=== PATIENT | female | born 1970 | race African-American/Black ===

== ENCOUNTER 2016-08-16 08:45 | Emergency (ER) | payer OTHER ==
--- NOTE | 2016-08-16 11:16 | ER Document Report ---
ED General - General Chief Complaint: Sinus Pain Stated Complaint: HEAD PAIN Mode of Arrival: Ambulatory Information source: Patient Notes: 45 y/o F presents to the emergency department complaining of sinus congestion and pressure, headache, sore throat and body ache. Reports aches to bilateral upper chest and bilateral upper back worse with cough and deep breathing. Patient reports symptoms started approximately 2 days ago. Denies chest pain, fever, shortness of breath, nausea or vomiting. Reports history of for sinusitis with course of Augmentin approximately 2 weeks ago. TRAVEL OUTSIDE OF THE [place] IN LAST 30 DAYS: No - HPI Onset/Duration: Persistent Quality of pain: Achy Severity: Mild Pain Level: 2 Associated symptoms: Body/muscle aches, Headache, Rhinnorhea, Sore throat Exacerbated by: Deep breathing Similar symptoms previously: Yes Recently seen / treated by doctor: No - Related Data Allergies/Adverse Reactions: No Known Allergies Allergy (Verified 08/16/16 08:45) Past Medical History - General Information source: Patient - Social History Smoking Status: Never Smoker Chew tobacco use (# tins/day): No Frequency of alcohol use: None Drug Abuse: None Lives with: Family Family History: Reviewed & Not Pertinent Patient has suicidal ideation: No Patient has homicidal ideation: No - Past Medical History Cardiac Medical History: Reports: Hx Hypertension - Used to be on medication, it has been stopped. Neurological Medical History: Reports: Hx Seizures - History is suggestive of a seizure disorder, unconfirmed on testing. Renal/ Medical History: Denies: Hx Peritoneal Dialysis Musculoskeltal Medical History: Reports Hx Arthritis - Foot. Patient takes Mobic. Past Surgical History: Reports: Hx Hysterectomy - Immunizations Hx Diphtheria, Pertussis, Tetanus Vaccination: Yes Review of Systems - Review of Systems Constitutional: See HPI EENT: See HPI Cardiovascular: No symptoms reported Respiratory: See HPI Gastrointestinal: No symptoms reported Genitourinary: No symptoms reported Female Genitourinary: No symptoms reported Musculoskeletal: No symptoms reported Skin: No symptoms reported Hematologic/Lymphatic: No symptoms reported Neurological/Psychological: No symptoms reported -: Yes All other systems reviewed and negative Physical Exam - Vital signs Vitals: Temp Pulse Resp BP Pulse Ox 97.5 F 88 16 133/94 H 97 08/16/16 08:48 08/16/16 08:48 08/16/16 08:48 08/16/16 08:48 08/16/16 08:48 Interpretation: Normal - General General appearance: Appears well, Alert In distress: None - HEENT Head: Normocephalic, Atraumatic Eyes: Normal Conjunctiva: Normal Eyelashes: Normal Pupils: PERRL Ears: Normal External canal: Normal Sinus: Redness, Swelling. No: Tenderness Nasal: Clear rhinorrhea. No: Purulent discharge Mouth/Lips: Normal Mucous membranes: Normal, Moist Pharynx: Normal. No: Blood in hypopharynx, Erythema, Exudate, Peritonsillar abscess, Post nasal drainage, Retropharyngeal abscess, Tonsillar hypertrophy, Uvular edema, Potential airway comprom., Other Neck: Normal. No: Anterior cervical chain, Posterior cervical chain, Lymphadenopathy, Meningismus, Subcutaneous emphysema - Respiratory Respiratory status: No respiratory distress Chest status: Nontender Breath sounds: Normal - CTAB Chest palpation: Normal - Cardiovascular Rhythm: Regular Heart sounds: Normal auscultation Murmur: No Pulses: Normal: Radial Normal capillary refill: Yes - Abdominal Inspection: Normal Distension: No distension Bowel sounds: Normal Tenderness: Nontender Organomegaly: No organomegaly - Back Back: Normal, Nontender - Extremities General upper extremity: Normal inspection, Nontender, Normal color, Normal ROM , Normal temperature General lower extremity: Normal inspection, Nontender, Normal color, Normal ROM , Normal temperature, Normal weight bearing - Neurological Neuro grossly intact: Yes Cognition: Normal Orientation: AAOx4 Jamil Coma Scale Eye Opening: Spontaneous [place] Coma Scale Verbal: Oriented Jamil Coma Scale Motor: Obeys Commands [place] Coma Scale Total: 15 Speech: Normal Motor strength normal: LUE, RUE, LLE, RLE Sensory: Normal - Psychological Associated symptoms: Normal affect, Normal mood - Skin Skin Temperature: Warm Skin Moisture: Dry Skin Color: Normal Skin Turgor: Elastic Course - Re-evaluation Re-evalutation: 08/16/16 11:19 Patient hemodynamically stable, in no distress, afebrile. Rapid strep and influenza negative. Will treat symptomatically for a likely viral upper respiratory infection at this time with no suggestion of emergent infectious, inflammatory, or vascular etiology at this time. Patient appears stable for discharge and agrees with home care, follow-up with PCP, ED return precautions. - Vital Signs Vital signs: Temp Pulse Resp BP Pulse Ox 97.5 F 77 20 122/89 H 100 08/16/16 11:33 08/16/16 11:33 08/16/16 11:33 08/16/16 11:33 08/16/16 11:33 Discharge - Discharge Clinical Impression: URI (upper respiratory infection) Qualifiers: URI type: unspecified URI Qualified Code(s): J06.9 - Acute upper respiratory infection, unspecified Condition: Stable Disposition: HOME, SELF-CARE Instructions: Viral Syndrome ([facility]), Upper Respiratory Illness ([facility]), Acetaminophen, Use of [id number] Ibuprofen ([facility]), Decongestant Medication ([facility]), Cough Suppressant & Expectorant Medications Additional Instructions: Home self care: -Rest, hydration (6-10 glasses/day) -Steamy shower -Apply warm facial packs -Nasal saline irrigation lavage -Sleep with head elevated -Avoid cigarette smoke -Use of humidifier/vaporizer -Balanced nutrition Follow-up with your primary care provider tomorrow as discussed. Return to the emergency department for any worsening symptoms or concerns. Prescriptions: Guaifenesin/Dm/Pseudoephedrine [Guai 800/Pse 60/Dm 30 Tablet] 1 tab PO Q12HP PRN #6 tab.sr.12h PRN Reason: Mometasone Furoate [Nasonex] 1 spray NS Q12HP PRN #1 spray.pump PRN Reason: Forms: Elevated Blood Pressure Referrals: CHACHO CHOWDHURY MD [Primary Care Provider] - Follow up tomorrow
[2016-08-16 11:34] VITALS: BP 122/89
== END 2016-08-16 11:33 | disposition home or self-care (01) ==
LOC: ER 08:45
DX: J06.9 Acute upper respiratory infection, unspecified (principal); R09.81 Nasal congestion; R51 Headache; J02.9 Acute pharyngitis, unspecified; R07.9 Chest pain, unspecified; M54.89 Other dorsalgia; M79.1 Myalgia; J34.89 Other specified disorders of nose and nasal sinuses; I10 Essential (primary) hypertension
CPT/HCPCS: 87070; 87804; 87880; 99283

== ENCOUNTER 2017-01-30 00:27 | Emergency (ER) | payer OTHER ==
[2017-01-30 00:35] VITALS: BP 147/91
[2017-01-30] MEDS ORDERED: PENICILLIN V POTASSIUM 500 MG TABLET PO ONE (01:20)
--- NOTE | 2017-01-30 01:22 | ER Document Report ---
ED General - General Chief Complaint: Toothache Stated Complaint: TOOTACHE Time Seen by Provider: 01/30/17 00:52 Notes: Patient is a 46-year-old female who presents with 24 hours of pain to her left lower jaw. Patient states that she has been told that her posterior molar is infected by a dentist in the past and told that she did have the tooth extracted. However, she states it has not caused her any problems for approximately 1 year so she has not addressed this issue. States last 24 hours she has developed a severe, constant, throbbing pain to the area but has moderately improved after she took ibuprofen today. Nothing worsens the pain. She denies any difficulty swallowing or breathing. No fever or constitutional symptoms. She denies any significant facial swelling. She denies a history of similar symptoms in the past. She tried to see her dentist today but they were closed. TRAVEL OUTSIDE OF THE [place] IN LAST 30 DAYS: No - Related Data Allergies/Adverse Reactions: No Known Allergies Allergy (Verified 08/16/16 08:45) Past Medical History - General Information source: Patient - Social History Smoking Status: Never Smoker Frequency of alcohol use: None Drug Abuse: None Lives with: Family Family History: Reviewed & Not Pertinent Patient has suicidal ideation: No Patient has homicidal ideation: No - Past Medical History Cardiac Medical History: Reports: Hx Hypertension - Used to be on medication, it has been stopped. Neurological Medical History: Reports: Hx Seizures - History is suggestive of a seizure disorder, unconfirmed on testing. Renal/ Medical History: Denies: Hx Peritoneal Dialysis Musculoskeltal Medical History: Reports Hx Arthritis - Foot. Patient takes Mobic. Past Surgical History: Reports: Hx Hysterectomy - Immunizations Hx Diphtheria, Pertussis, Tetanus Vaccination: Yes Review of Systems - Review of Systems Notes: Constitutional: Negative for fever. HENT: Positive for dental pain Eyes: Negative for visual changes. Cardiovascular: Negative for chest pain. Respiratory: Negative for shortness of breath. Gastrointestinal: Negative for abdominal pain, vomiting or diarrhea. Genitourinary: Negative for dysuria. Musculoskeletal: Negative for back pain. Skin: Negative for rash. Neurological: Negative for headaches, weakness or numbness. 10 point ROS negative except as marked above and in HPI. Physical Exam - Vital signs Vitals: Temp Pulse Resp BP Pulse Ox 98.8 F 88 14 147/91 H 99 01/30/17 00:32 01/30/17 00:32 01/30/17 00:32 01/30/17 00:32 01/30/17 00:32 Interpretation: Hypertensive Notes: PHYSICAL EXAMINATION: GENERAL: Well-appearing, well-nourished and in no acute distress. HEAD: Atraumatic, normocephalic. EYES: sclera anicteric, conjunctiva are normal. ENT: Moist mucous membranes. Diffusely poor dentition, the left most posterior lower molar appears to have a large dental caries without any evidence of a periapical abscess. There is left submandibular lymphadenopathy but no appreciable facial swelling. Oropharynx is widely patent. NECK: Normal range of motion LUNGS: Normal work of breathing HEART: 2+ radial pulses bilaterally EXTREMITIES: no pitting or edema. No cyanosis. NEUROLOGICAL: No focal neurological deficits. Moves all extremities spontaneously and on command. PSYCH: Normal mood, normal affect. SKIN: Warm, Dry, normal turgor, no rashes or lesions noted. Course - Re-evaluation Re-evalutation: 01/30/17 01:20 Presentation is most consistent with likely an infected tooth. Airway is patent. Vitals within normal limits. Patient is able swallow without any difficulty. There is no significant facial swelling. Patient will be started on antibiotics and a limited number of pain medications. I've instructed to follow-up with dentistry as earliest ability for definitive management. Return precautions and follow-up recommendations have been discussed at length. - Vital Signs Vital signs: Temp Pulse Resp BP Pulse Ox 98.8 F 88 14 147/91 H 99 01/30/17 00:33 01/30/17 00:33 01/30/17 00:33 01/30/17 00:33 01/30/17 00:33 Discharge - Discharge Clinical Impression: Dental caries, Pain, dental Condition: Good Disposition: HOME, SELF-CARE Additional Instructions: You have been seen for dental pain. It is very important that you follow-up with a dentist for definitive care. Please return if you develop fever greater than 101, swelling in your face, vomiting, difficulty breathing or swallowing, or any other symptoms that are concerning to you. For pain you should take ibuprofen 600 mg every 6 hours as needed. Prescriptions: Penicillin V Potassium [Penicillin Vk 500 mg Tablet] 500 mg PO BID #20 tablet
== END 2017-01-30 01:30 | disposition home or self-care (01) ==
LOC: ER 00:27
DX: K02.9 Dental caries, unspecified (principal); K08.89 Other specified disorders of teeth and supporting structures; R68.84 Jaw pain
CPT/HCPCS: 99282

== ENCOUNTER 2017-09-08 09:07 | Emergency (ER) | payer OTHER ==
[2017-09-08 09:13] VITALS: BP 137/92
--- NOTE | 2017-09-08 09:43 | ER Document Report ---
HPI - HPI Patient complains to provider of: Left ankle and leg pain Pain Level: 4 Context: Is a 46-year-old black female complaining of pain to her left ankle and leg 1 day. Patient has a history of osteoarthritis, retention and seizures. takes Mobic and Flexeril for arthritis. 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 When she woke this morning her leg was hurting more than usual. She did take her prescribed medications and is feeling better at this time. She denies any swelling, changing color or temperature of her leg , or any difficulty walking. No chest pain or shortness of breath. she has no history of DVT and is a non-smoker Associated Symptoms: None Exacerbated by: Denies Relieved by: Denies - ROS Systems Reviewed and Negative: Yes All other systems reviewed and negative - REPRODUCTIVE Reproductive: DENIES: : Past Medical History - General Information source: Patient - Social History Smoking Status: Never Smoker Frequency of alcohol use: None Drug Abuse: None Lives with: Family Family History: Reviewed & Not Pertinent - Past Medical History Cardiac Medical History: Reports: Hx Hypertension - Used to be on medication, it has been stopped. Neurological Medical History: Reports: Hx Seizures - History is suggestive of a seizure disorder, unconfirmed on testing. Renal/ Medical History: Denies: Hx Peritoneal Dialysis Musculoskeltal Medical History: Reports Hx Arthritis - Foot. Patient takes Mobic. Past Surgical History: Reports: Hx Hysterectomy - Immunizations Hx Diphtheria, Pertussis, Tetanus Vaccination: Yes Vertical Provider Document - CONSTITUTIONAL Agree With Documented VS: Yes Exam Limitations: No Limitations General Appearance: Obese - INFECTION CONTROL TRAVEL OUTSIDE OF THE [place] IN LAST 30 DAYS: No - HEENT HEENT: Atraumatic, PERRLA - NECK Neck: Normal Inspection, Supple - RESPIRATORY Respiratory: Breath Sounds Normal, No Respiratory Distress O2 Sat by Pulse Oximetry: 98 - GI/ABDOMEN Gastrointestinal: Abdomen Soft - BACK Back: Normal Inspection - MUSCULOSKELETAL/EXTREMETIES Musculoskeletal/Extremeties: MAEW, FROM, Tender, No Edema Notes: Negative Homans - NEURO Level of Consciousness: Awake, Alert, Appropriate - DERM Integumentary: Warm, Dry Course - Re-evaluation Re-evalutation: 09/08/17 09:43 On exam this patient has no circulatory compromise. Her left foot is warm with good pedal pulse. Negative Homans sign. Her calf is nontender. She has mild tenderness to the lateral compartment of her left knee quadricep muscles. Able to walk steadily and independently without pain. Low suspicion for any DVT, compartment syndrome, fracture, tissue infection. The discussed home care, ED return precautions and primary care follow-up. Patient is agreeable with plan is stable for discharge - Vital Signs Vital signs: Temp Pulse Resp BP Pulse Ox 98.0 F 95 20 137/92 H 98 09/08/17 09:11 09/08/17 09:11 09/08/17 09:11 09/08/17 09:11 09/08/17 09:11 Discharge - Discharge Clinical Impression: Left leg pain Condition: Stable Disposition: HOME, SELF-CARE Additional Instructions: Continue your current medications as prescribed There are good support shoes at work And elevate legs when possible follow Up with your primary care if pain persists Return to ER for any worsening Referrals: CHACHO CHOWDHURY MD [Primary Care Provider] - Follow up as needed
== END 2017-09-08 09:52 | disposition home or self-care (01) ==
LOC: ER 09:07
DX: M25.572 Pain in left ankle and joints of left foot (principal); M79.605 Pain in left leg; Z90.710 Acquired absence of both cervix and uterus
CPT/HCPCS: 99283

== ENCOUNTER 2017-11-01 03:27 | Emergency (ER) | payer OTHER ==
[2017-11-01] MEDS ORDERED: KETOROLAC TROMETHAMINE INJ/PF 30 MG/1 ML SDV IM ONE (04:25)
--- NOTE | 2017-11-01 04:30 | ER Document Report ---
ED General - General Chief Complaint: Back Pain Stated Complaint: BACK PAIN Time Seen by Provider: 11/01/17 04:17 Notes: Patient is a 47-year-old female presents with complaint of back pain. She says she has had some intermittent back issues ever since she had a seizure one year ago. She said this is the worst ever been. Said the pain is radiating from the right side of her back down into her gluteal region and down into the back of her thigh. No numbness or weakness into her feet. Pain is worse with movement. No dysuria. She says may be some mild urinary frequency. No loss of bowel control. No urinary retention. No fevers. No recent trauma or acute injury. No other complaints at this time. No numbness in the perineal region. TRAVEL OUTSIDE OF THE [place] IN LAST 30 DAYS: No - Related Data Allergies/Adverse Reactions: No Known Allergies Allergy (Verified 11/01/17 03:33) Past Medical History - Social History Smoking Status: Never Smoker Frequency of alcohol use: None Drug Abuse: None Family History: Reviewed & Not Pertinent - Past Medical History Cardiac Medical History: Reports: Hx Hypertension - Used to be on medication, it has been stopped. Neurological Medical History: Reports: Hx Seizures - History is suggestive of a seizure disorder, unconfirmed on testing. Renal/ Medical History: Denies: Hx Peritoneal Dialysis Musculoskeltal Medical History: Reports Hx Arthritis - Foot. Patient takes Mobic. Past Surgical History: Reports: Hx Hysterectomy - Immunizations Hx Diphtheria, Pertussis, Tetanus Vaccination: Yes Review of Systems - Review of Systems Notes: My Normal Review Basic REVIEW OF SYSTEMS: CONSTITUTIONAL : Denies fever, chills, or sweats. Denies recent illness. GASTROINTESTINAL: Denies abdominal pain. Denies nausea, vomiting, or diarrhea. GENITOURINARY: Denies difficulty urinating, painful urination, burning, frequency, or blood in urine. MUSCULOSKELETAL: Back pain NEUROLOGICAL: Denies sensory or motor loss. ALL OTHER SYSTEMS REVIEWED AND NEGATIVE. Physical Exam - Vital signs Vitals: Temp Pulse Resp BP Pulse Ox 98.4 F 99 20 145/91 H 97 11/01/17 04:13 11/01/17 04:13 11/01/17 04:13 11/01/17 04:13 11/01/17 04:13 - Notes Notes: General Appearance: Well nourished, alert, cooperative, no acute distress, moderate obvious discomfort. Vitals: reviewed, See vital signs table. Head: no swelling or tenderness to the head Eyes: PERRL, EOMI, Conjuctiva clear Mouth: No decreasd moisture Abdomen: Normal BS, soft, No rigidity, No abdominal tenderness, No guarding, no rebound, Back: Pain is reproducible to palpation just to the right of the lumbar spine over the right lumbar paraspinal musculature and into the right gluteal region. Patient has little bit increased pain with right straight leg raise. Left straight leg raise is negative. Extremities: strength 5/5 in all extremities, good pulses in all extremities, no swelling or tenderness in the extremities, no edema. Strength with plantar dorsiflexion against resistance. Patellar reflexes are equal and normal bilaterally. Skin: warm, dry, appropriate color, no rash Neuro: speech clear, oriented x 3, normal affect, responds appropriately to questions. Distal sensation intact. Course - Re-evaluation Re-evalutation: 11/01/17 07:06 Patient has no signs of cauda equina syndrome. I did talk to her about the signs and symptoms of cauda equina syndrome and to return to immediately if she has any signs and symptoms. She has been appears to be low back pain with sciatica. I have prescribed her some Clare tablets. I informed her to only take these one her pain is not at all controlled with the Motrin and Tylenol. We will give her a few days off work. I will have her follow-up with a primary care doctor this week for reevaluation. Patient agrees with plan will be discharged home. Dictation of this chart was performed using voice recognition software; therefore, there may be some unintended grammatical errors. - Vital Signs Vital signs: Temp Pulse Resp BP Pulse Ox 98.4 F 83 16 141/90 H 100 11/01/17 04:13 11/01/17 06:20 11/01/17 06:20 11/01/17 06:20 11/01/17 06:20 - Laboratory Laboratory results interpreted by me: 11/01/17 04:30 Urine Blood SMALL H Discharge - Discharge Clinical Impression: Back pain Qualifiers: Back pain location: low back pain Chronicity: acute Back pain laterality: right Sciatica presence: with sciatica Sciatica laterality: sciatica of right side Qualified Code(s): M54.41 - Lumbago with sciatica, right side Condition: Good Disposition: HOME, SELF-CARE Instructions: Oral Narcotic Medication ([facility]) Additional Instructions: Please only use the Clare if you have severe pain not responding to the Ibuprofen or Tylenol. Please follow up with your doctor this week for reevaluation and further workup which may include a MRI if you pain worsens. Please return to the ER immediately if you develop leg weakness, leg numbness, loss of bowel control,or inability to urinate. Prescriptions: Hydrocodone/Acetaminophen [Clare 5-325 mg Tablet] 1 tab PO Q4 PRN #10 tablet PRN Reason: For [employer] Pain Forms: Return to Work Referrals: CHACHO CHOWDHURY MD [Primary Care Provider] - Follow up in 3-5 days
[2017-11-01 05:21] LABS: APPEARANCE,URINE CLEAR; BILIRUBIN,URINE NEGATIVE (NEGATIVE); COLOR,URINE YELLOW; GLUCOSE, URINE NEGATIVE (NEGATIVE); KETONES,URINE NEGATIVE (NEGATIVE); LEUKOCYTE ESTERASE,URINE NEGATIVE (NEGATIVE); NITRITE,URINE NEGATIVE (NEGATIVE); PROTEIN,URINE NEGATIVE (NEGATIVE); URINE SPECIFIC GRAVITY 1.014; UROBILINOGEN,URINE NEGATIVE mg/dL (<2.0)
[2017-11-01] MEDS ORDERED: HYDROCODONE/ACETAMINOPHEN 5-325 MG (6 TAB/ER DISP) PO PRN (06:14)
[2017-11-01 06:23] VITALS: BP 141/90
== END 2017-11-01 06:25 | disposition home or self-care (01) ==
LOC: ER 03:27
DX: M54.41 Lumbago with sciatica, right side (principal); I10 Essential (primary) hypertension
CPT/HCPCS: 99283; 96372; 81001; J1885

== ENCOUNTER → 2017-11-05 | Outpatient (CLI) | payer OTHER ==
--- NOTE | 2017-11-05 11:45 | RADIOLOGY REPORT (SQ) ---
EXAM DESCRIPTION: LUMBAR SPINE COMPLETE COMPLETED DATE/TIME: 11/05/2017 10:36 am REASON FOR STUDY: LUMBAGO WITH SCIATICA, LEFT SIDE M54.42 LUMBAGO WITH SCIATICA, LEFT SIDE COMPARISON: None. NUMBER OF VIEWS: Five views including obliques. TECHNIQUE: AP, lateral, oblique, and sacral radiographic images acquired of the lumbar spine. LIMITATIONS: None. FINDINGS: MINERALIZATION: Normal. SEGMENTATION: Normal. No transitional anatomy. ALIGNMENT: Normal. VERTEBRAE: Maintained height. No fracture or worrisome bone lesion. DISCS: Mild disc related osteophytes. Disc spaces are otherwise relatively preserved. POSTERIOR ELEMENTS: Pedicles and facets are intact. No pars defect or posterior arch defects. HARDWARE: None in the spine. PARASPINAL SOFT TISSUES: Normal. PELVIS: Intact as visualized. No fractures or worrisome bone lesions. SI joints intact. OTHER: No other significant finding. IMPRESSION: Mild disc disease. No significant spinal malalignment, fracture or bone lesion. TECHNICAL DOCUMENTATION: JOB ID: [id number] [employer]- All Rights Reserved Reading location - IP/workstation name: Unknown
== END ==
LOC: OD 10:21
PROVIDERS: ATTEND Physician Assistant
DX: M54.42 Lumbago with sciatica, left side (principal); M51.36 Other intervertebral disc degeneration, lumbar region
CPT/HCPCS: 72110

== ENCOUNTER 2017-11-30 08:43 | Emergency (ER) | payer OTHER ==
[2017-11-30] MEDS ORDERED: PROCHLORPERAZINE EDISYLATE INJ 10 MG/2 ML VIAL IV ONE (09:10)
[2017-11-30] MEDS ORDERED: ONDANSETRON HCL INJ/PF 4 MG/2 ML SDV IV ONE (09:10)
--- NOTE | 2017-11-30 09:53 | RADIOLOGY REPORT (SQ) ---
EXAM DESCRIPTION: CT HEAD WITHOUT COMPLETED DATE/TIME: 11/30/2017 9:42 am REASON FOR STUDY: sz fall COMPARISON: 07/18/2015. TECHNIQUE: Axial images acquired through the brain without intravenous contrast. Images reviewed wi th bone, brain and subdural windows. Additional sagittal and coronal reconstructions were generated. Images stored on PACS. All CT scanners at this facility use dose modulation, iterative reconstruction, and/or weight based d osing when appropriate to reduce radiation dose to as low as reasonably achievable (ALARA). [facility]: Dose Right [facility]: CareDose [facility]: Dose Right [facility]: Teradose 4D [facility]: [employer] RADIATION DOSE: CT Rad equipment meets quality standard of care and radiation dose reduction techniq ues were employed. CTDIvol: 53.2 mGy. DLP: 1017 mGy-cm. mGy. LIMITATIONS: None. FINDINGS: VENTRICLES: Normal size and contour. CEREBRUM: No masses. No hemorrhage. No midline shift. No evidence for acute infarction. Normal gra y/white matter differentiation. No areas of low density in the white matter. CEREBELLUM: No masses. No hemorrhage. No alteration of density. No evidence for acute infarction. EXTRAAXIAL SPACES: No fluid collections. No masses. ORBITS AND GLOBE: No intra- or extraconal masses. Normal contour of globe without masses. CALVARIUM: No fracture. PARANASAL SINUSES: No fluid or mucosal thickening. SOFT TISSUES: No mass or hematoma. OTHER: No other significant finding. IMPRESSION: NORMAL BRAIN CT WITHOUT CONTRAST. EVIDENCE OF ACUTE STROKE: NO. COMMENT: Quality ID # [id number]: Final reports with documentation of one or more dose reduction techniques (e.g., Automated exposure control, adjustment of the mA and/or kV according to patient size, use of iterative reconstruction technique) TECHNICAL DOCUMENTATION: JOB ID: [id number] [employer]- All Rights Reserved Reading location - IP/workstation name: [email or web address]
--- NOTE | 2017-11-30 09:55 | EKG REPORT ---
SEVERITY:- NORMAL ECG - SINUS RHYTHM : Confirmed by: Patricia Barakat MD 30-Nov-2017 09:54:51
--- NOTE | 2017-11-30 09:55 | EKG REPORT ---
SEVERITY:- BORDERLINE ECG - SINUS OR ECTOPIC ATRIAL RHYTHM PROBABLE LEFT ATRIAL ABNORMALITY BORDERLINE T WAVE ABNORMALITIES : Confirmed by: Patricia Barakat MD 30-Nov-2017 09:54:55
[2017-11-30] MEDS ORDERED: LEVETIRACETAM 1000 MG/NACL-ISO 1,000 MG/100 ML RTUPB IV SCH (10:00)
[2017-11-30 10:50] LABS: URINE AMPHETAMINES SCREEN NEGATIVE; URINE BARBITURATES SCREEN NEGATIVE; URINE BENZODIAZEPINES SCREEN NEGATIVE; URINE COCAINE SCREEN NEGATIVE; URINE MARIJUANA (THC) SCREEN NEGATIVE; URINE METHADONE SCREEN NEGATIVE; URINE PHENCYCLIDINE SCREEN NEGATIVE
[2017-11-30 11:42] LABS: ABSOLUTE LYMPHOCYTES (AUTO) 0.9 10^3/uL (0.5-4.7); ABSOLUTE MONOCYTES (AUTO) 0.4 10^3/uL (0.1-1.4); ABSOLUTE NEUT (AUTO) 6.4 10^3/uL (1.7-8.2); BASOPHILS % (AUTO) 0.2 % (0-2); EOSINOPHILS % (AUTO) 0.2 % (0-6); LYMPHOCYTES % (AUTO) 11.4 % (13-45); MEAN CORPUSCULAR HEMOGLOBIN 25.6 pg (27.0-33.4); MEAN CORPUSCULAR HGB CONC 33.4 g/dL (32.0-36.0); MEAN CORPUSCULAR VOLUME 77 fl (80-97); MONOCYTES % (AUTO) 5.8 % (3-13); PLATELET COUNT 296 10^3/uL (150-450); RED BLOOD COUNT 5.08 10^6/uL (3.72-5.28); RED CELL DISTRIBUTION WIDTH 14.7 % (11.5-14.0); SEGMENTED NEUTROPHILS % (AUTO) 82.4 % (42-78); TOTAL CELLS COUNTED % (AUTO) 100 %; WHITE BLOOD COUNT 7.8 10^3/uL (4.0-10.5)
[2017-11-30 12:07] LABS: ANION GAP 9 (5-19); BLOOD UREA NITROGEN 11 mg/dL (7-20); CALCIUM 9.3 mg/dL (8.4-10.2); CARBON DIOXIDE 28 mmol/L (22-30); CHLORIDE 105 mmol/L (98-107); CREATINE KINASE 230 U/L (30-135); GLUCOSE 108 mg/dL (75-110); POTASSIUM 3.8 mmol/L (3.6-5.0)
[2017-11-30 12:08] LABS: ALCOHOL < 10 mg/dL (NONE DETECTED)
[2017-11-30] MEDS ORDERED: LEVETIRACETAM 500 MG TABLET PO ONE (12:59)
--- NOTE | 2017-11-30 13:31 | ER Document Report ---
ED General - General Chief Complaint: Probable Seizure Stated Complaint: POSSIBLE SEIZURE Time Seen by Provider: 11/30/17 08:55 TRAVEL OUTSIDE OF THE [place] IN LAST 30 DAYS: No - HPI Patient complains to provider of: Possible seizure Notes: Patient coming in for evaluation of possible seizure. Patient has a history of seizure states she has been out of her Keppra for approximately 2 3 days. Patient states that she remembers time around [birth year]1929 however was found later in the morning on the floor by family member. Patient otherwise takes upon arrival she feels achy similar to after she has had a seizure in the past. Patient states last seizure was many years ago. Patient denies any fever chills nausea vomiting diarrhea in the last 24 hours. Patient is alert and oriented upon my evaluation. - Related Data Allergies/Adverse Reactions: No Known Allergies Allergy (Verified 11/30/17 08:55) Past Medical History - Social History Smoking Status: Never Smoker Chew tobacco use (# tins/day): No Frequency of alcohol use: None Drug Abuse: None Family History: Reviewed & Not Pertinent Patient has suicidal ideation: No Patient has homicidal ideation: No - Past Medical History Cardiac Medical History: Reports: Hx Hypertension - Used to be on medication, it has been stopped. Neurological Medical History: Reports: Hx Seizures - History is suggestive of a seizure disorder, unconfirmed on testing. Renal/ Medical History: Denies: Hx Peritoneal Dialysis Musculoskeltal Medical History: Reports Hx Arthritis - Foot. Patient takes Mobic. Past Surgical History: Reports: Hx Hysterectomy - Immunizations Hx Diphtheria, Pertussis, Tetanus Vaccination: Yes Review of Systems - Review of Systems Constitutional: No symptoms reported EENT: No symptoms reported Cardiovascular: No symptoms reported Respiratory: No symptoms reported Gastrointestinal: No symptoms reported Genitourinary: No symptoms reported Female Genitourinary: No symptoms reported Musculoskeletal: No symptoms reported Skin: No symptoms reported Hematologic/Lymphatic: No symptoms reported Neurological/Psychological: Seizure -: Yes All other systems reviewed and negative Physical Exam - Vital signs Vitals: Temp Pulse Resp BP Pulse Ox 97.7 F 91 20 145/99 H 99 11/30/17 08:50 11/30/17 08:50 11/30/17 08:50 11/30/17 08:50 11/30/17 08:50 Interpretation: Normal - General General appearance: Appears well, Alert - HEENT Head: Normocephalic, Atraumatic Eyes: Normal Pupils: PERRL - Respiratory Respiratory status: No respiratory distress Chest status: Nontender Breath sounds: Normal Chest palpation: Normal - Cardiovascular Rhythm: Regular Heart sounds: Normal auscultation Murmur: No - Abdominal Inspection: Normal Distension: No distension Bowel sounds: Normal Tenderness: Nontender Organomegaly: No organomegaly - Back Back: Normal, Nontender - Extremities General upper extremity: Normal inspection, Nontender, Normal color, Normal ROM , Normal temperature General lower extremity: Normal inspection, Nontender, Normal color, Normal ROM , Normal temperature, Normal weight bearing. No: Radha's sign - Neurological Neuro grossly intact: Yes Cognition: Normal Orientation: AAOx4 Jamil Coma Scale Eye Opening: Spontaneous [place] Coma Scale Verbal: Oriented [place] Coma Scale Motor: Obeys Commands Jamil Coma Scale Total: 15 Speech: Normal Motor strength normal: LUE, RUE, LLE, RLE Sensory: Normal - Psychological Associated symptoms: Normal affect, Normal mood - Skin Skin Temperature: Warm Skin Moisture: Dry Skin Color: Normal Course - Re-evaluation Re-evalutation: 11/30/17 16:03 Breakthrough seizure with known seizure disorder and previous neurology evaluation. Now returned to neuro baseline. Labs reviewed. No indication of new or acute process. Patient appears safe for discharge with observation and close outpatient F/U with PCP or neurology. Seizure warnings discussed with patient / family. 11/30/17 16:03 Patient was given a dose of Keppra here with discharge home with her evening dose and a prescription did contact PCP recommend follow-up - Vital Signs Vital signs: Temp Pulse Resp BP Pulse Ox 98.1 F 91 17 138/90 H 97 11/30/17 13:00 11/30/17 08:50 11/30/17 14:01 11/30/17 14:00 11/30/17 14:01 - Laboratory Result Diagrams: 11/30/17 10:55 11/30/17 10:55 Laboratory results interpreted by me: 11/30/17 11/30/17 10:55 10:55 MCV 77 L MCH 25.6 L RDW 14.7 H Seg Neutrophils % 82.4 H Lymphocytes % 11.4 L Creatine Kinase 230 H Discharge - Discharge Clinical Impression: Seizure Condition: Good Disposition: HOME, SELF-CARE Instructions: Seizure, Known Epileptic ([facility]) Additional Instructions: Your laboratory studies today did not show any critical pathology. CT of her head is otherwise normal. Please take Tylenol Motrin for pain control. Please follow-up with your primary care physician. Please take your antiseizure medications as prescribed. Prescriptions: Levetiracetam [Keppra] 1,000 mg PO BID #60 tablet Referrals: CHACHO CHOWDHURY MD [Primary Care Provider] - Follow up in 3-5 days
[2017-11-30 14:13] VITALS: BP 138/90
== END 2017-11-30 14:14 | disposition home or self-care (01) ==
LOC: ER 08:43
DX: G40.909 Epilepsy, unspecified, not intractable, without status epilepticus (principal); T42.6X6A Underdosing of other antiepileptic and sedative-hypnotic drugs, initial encounter; Z91.128 Patient's intentional underdosing of medication regimen for other reason; Z91.14 Patient's other noncompliance with medication regimen; I10 Essential (primary) hypertension
CPT/HCPCS: 93005; 99285; 96374; 96375; 36415; 80307 ×2; 82550; 84703; 85025; 80048; 84484; 70450; 93010; J0780; J2405; J1953

== ENCOUNTER → 2018-01-05 | Outpatient (CLI) | payer OTHER ==
--- NOTE | 2018-01-05 16:01 | WOMENS IMAGING REPORT ---
EXAM DESCRIPTION: 3D SCREENING MAMMO BILAT COMPLETED DATE/TIME: 01/05/2018 2:22 pm REASON FOR STUDY: BILATERAL SCREENING MAMMO 3D/Z12.31 Z12.31 ENCNTR SCREEN MAMMOGRAM FOR MALIGNANT NEOPLASM OF GERONIMO COMPARISON: 2011 TECHNIQUE: Standard craniocaudal and mediolateral oblique views of each breast recorded using digita l acquisition and breast tomosynthesis. LIMITATIONS: None. FINDINGS: No masses, calcifications or architectural distortion. No areas of suspicion. Read with the assistance of CAD. .[facility] - R2 Cenova Version 1.3 .[facility] - R2 Cenova Version 1.3 .[facility] - R2 Cenova Version 2.4 .[facility] [place] - R2 Cenova Version 2.4 .[facility] - R2 Automated Process Operator Version 9.2 IMPRESSION: NORMAL MAMMOGRAM. BIRADS 1. BREAST DENSITY: b. There are scattered areas of fibroglandular density. BIRAD: 1 NEGATIVE RECOMMENDATION: ROUTINE SCREENING Please continue yearly bilateral screening tomosynthesis in December 2018 COMMENT: The patient has been notified of the results by letter per [place] requirements. Additional no tification policies are in place for contacting patient with suspicious or incomplete findings. Quality ID #[id number]: The [employer] [place] [employer] recommends an annual screening mammogram for women aged 40 years or over. This facility utilizes a reminder system to ensure that all patients receive reminder letters, and/or direct phone calls for appointments. This includes reminders for routine scr eening mammograms, diagnostic mammograms, or other Breast Imaging Interventions when appropriate. Th is patient will be placed in the appropriate reminder system. The [employer] [place] [employer] (ACR) has developed recommendations for screening MRI of the breast s in certain patient populations, to be used in conjunction with mammography. Breast MRI surveillanc e may be appropriate for women with more than 20% lifetime risk of developing breast cancer as deter mined by genetic testing, significant family history of the disease, or history of mantle radiation f or Hodgkins Disease. ACR Practice Guidelines 2008. DBT Technology DBT is a type of tomographic mammography. With conventional mammography, overlapping breast tissue ma y make lesions difficult to detect, even with good compression. DBT uses an x-ray tube that rotates a round the breast, taking images at different angles. These images are then combined to create thin sl ices of the breast that the radiologist can view as a 3D reconstruction. The [employer] unit can perform full-field digital mammograms (2D imaging); or DBT (3D imaging); or both, in a combination mode that quickly performs both the mammogram and the tomosynthesis scan while the breast is still compressed. PQRS 6045F: Fluoroscopic imaging is not utilized for breast tomosynthesis. TECHNICAL DOCUMENTATION: FINDING NUMBER: (1) ASSESSMENT: (1) JOB ID: [id number] [employer]- All Rights Reserved Reading location - IP/workstation name: [facility]
== END ==
LOC: WI 13:59
PROVIDERS: ATTEND Physician Assistant
DX: Z12.31 Encounter for screening mammogram for malignant neoplasm of breast (principal)
CPT/HCPCS: 77063; 77067